=== PATIENT | female | born 1975 | race Caucasian/White ===

== ENCOUNTER 2018-07-24 06:38 | Emergency (ER) | END 2018-07-24 07:33 | disposition home or self-care (01) ==

== ENCOUNTER 2018-11-11 05:35 | Emergency (ER) | payer OTHER ==
[~2018-11-11] VITALS: Ht 157.5 cm; Wt 82.3 kg
[~2018-11-11 05:35] MED LIST: IBUP-1542 PO; PENI500T PO
[2018-11-11 05:42] VITALS: BP 133/62; PULSE 81; RESP 20; Ht 157.5 cm; Wt 82.3 kg
--- NOTE | 2018-11-11 06:39 | ERD ---
ER Documentation Chief Complaint Chief Complaint spilled cough medicine HPI This is a 43-year-old patient who presents to the emergency room with request of refill for promethazine/DM syrup. Patient had 200 mL of this medication filled on November 03, 2018. Patient states that she knocked over the bottle and spilled the medication. States that she has had a cough for several weeks and this medication was prescribed by her primary care doctor and has allowed her to sleep at night and she feels as though she is improved. Patient denies sputum production, fever, chest pain, sore throat. 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 ROS All systems reviewed and are negative except as per history of present illness. Medications Home Meds Active Scripts Dextromethorphan Hb-Promethazine Hcl* (Promethazine DM* Syrup) 473 Ml Syrup, 5 ML PO Q6 PRN for COUGH for 7 Days, #100 ML Prov:MEHRDAD MURCIA NP 11/11/18 Ibuprofen* (Motrin*) 600 Mg Tab, 600 MG PO Q6H PRN for PAIN AND/OR INFLAMMATION, #30 TAB Prov:AMBAR ORANTES MD 07/24/18 Penicillin V Potassium* (Penicillin V K*) 500 Mg Tab, 500 MG PO QID for 10 Days, TAB Prov:AMBAR ORANTES MD 07/24/18 Allergies Allergies: Coded Allergies: No Known Allergy (Unverified , 11/11/18) PMhx/Soc History of Surgery: Yes (cholecystectomy) Hx Psychiatric Problems: No Hx Miscellaneous Medical Probl: No Hx Alcohol Use: No Hx Substance Use: No Hx Tobacco Use: No Smoking Status: Never smoker FmHx Family History: No diabetes, No coronary disease, No other Physical Exam Vitals Vital Signs Date Temp Pulse Resp B/P (MAP) Pulse Ox O2 O2 Flow FiO2 Time Delivery Rate 11/11/18 98.6 81 20 133/62 100 05:42 (85) Physical Exam General: alert and oriented x4, no acute distress HEENT: normocephalic, atraumatic, PERRL, tympanic membranes normal, no nasal discharge, neck nontender without lymphadenopathy, pharynx nonerythematous Cardiovascular: regular rate and rhythm, normal peripheral perfusion Respiratory: lungs clear to auscultation and percussion without rales, without rhonchi, without wheezing, normal breath sounds, respirations non labored, normal air movement in lung martinez Psychiatric: demonstrates good judgment and reason and normal affect during examination Procedures/MDM This 43 yo female presents well-appearing with request for refill of phenergan cough syrup that she received last week from her PMD for cough due to common cold symptoms. There is low suspicion for worsening URI, pneumonia, or other pulmonary concern. Lung sounds are clear, resp e/u, no fevers. Lengthy discussion had with patient regarding post-viral self-care including increasing hydration, use of honey, use of lozenges. Patient instructed to follow-up with PMD for continued evaluation especially if cough has not resolved in 2 weeks. Departure Diagnosis: Primary Impression: Cough Condition: Stable Referrals: [facility] Additional Instructions: Thank you very much for allowing us to participate in your care. Your health and safety is our top priority at [facility]. Call your primary care doctor TOMORROW for an appointment during the next 2-4 days and bring all the information and medications prescribed. Have prescriptions filled and follow precisely the directions on the label. If the symptoms get worse and your provider is unavailable, return to the Emergency Department immediately. MEHRDAD MURCIA NP Nov 11, 2018 06:39
[2018-11-11] MEDS ORDERED: D-ME473S2 PO (06:40)
== END 2018-11-11 07:04 | disposition home or self-care (01) ==
LOC: FTE 05:35
DX: R05 Cough (principal)
CPT/HCPCS: 99283